=== PATIENT | male | born 2000 | race Two or more races ===

== ENCOUNTER 2023-07-20 01:58 | Emergency (ER) | payer MEDICAID, OTHER ==
[~2023-07-20] VITALS: Ht 175.3 cm; Wt 103.4 kg
[2023-07-20] MEDS ORDERED: KETOROLAC TROMETH 30 MG/ML 1ML VIAL IM ONE (04:15)
[2023-07-20 05:58] VITALS: BP 132/77; PULSE 67; RESP 18; TEMP 98.3; O2SAT 98
[2023-07-20] MEDS ORDERED: LIDO5PAD8 TOP (06:05)
[2023-07-20] MEDS ORDERED: CYCL-839 PO (06:05)
[2023-07-20] MEDS ORDERED: IBUP1TAB5 PO (06:05)
== END 2023-07-20 06:19 | disposition home or self-care (01) ==
LOC: ER 02:01
DX: S29.012A Strain of muscle and tendon of back wall of thorax, initial encounter (principal); X50.0XXA Overexertion from strenuous movement or load, initial encounter; Y93.89 Activity, other specified; Y92.89 Other specified places as the place of occurrence of the external cause; Y99.8 Other external cause status
CPT/HCPCS: 72070; 96372; 99283; J1885

== ENCOUNTER 2024-09-12 11:28 | Emergency (ER) | payer BC ==
[~2024-09-12] VITALS: Ht 172.7 cm; Wt 100.0 kg
[~2024-09-12 11:28] MED LIST: CYCL-839 PO; IBUP-1456 PO; IBUP1TAB5 PO; LIDO5PAD12 TOP
--- NOTE | 2024-09-12 11:48 | ED.PDOC ---
GI ASSESSMENT HPI Comments A 24 YEAR OLD MALE PRESENTS TO THE ED WITH COMPLAINT OF NAUSEA AND VOMITING STATUS POST WEGOVY INJECTION. PATIENT STATES HE USED AND WEGOVY INJECTION YESTERDAY NIGHT AND BEGAN TO EXPERIENCE NAUSEA AND VOMITING SHORTLY AFTER. PATIENT NOTES THAT HE HAS MILD ABDOMINAL CRAMPING ONLY WHEN VOMITING. PATIENT ALSO NOTES THAT HE DRANK ALCOHOL YESTERDAY NIGHT. PATIENT DENIES FEVER, CHILLS, SHORTNESS OF BREATH, CHEST PAIN, ABDOMINAL PAIN, HEADACHE, OR OTHER COMPLAINTS. NO OTHER SYMPTOMS OR MODIFYING FACTORS AT THIS TIME. PATIENT IS ALERT, ORIENTED X 4, AND HAS STEADY GAIT. Chief Complaint: Nausea/Vomiting Time Seen by MD: 11:40 Reviewed Notes: Nurses Notes, Medications, Allergies Allergies: Coded Allergies: NO KNOWN ALLERGIES (Unverified , 07/04/24) Home Meds Active Scripts Metoclopramide Hcl (Reglan) 10 Mg Tab, 10 MG PO BID, #30 TAB Prov:MEHDI LEON 09/12/24 Cyclobenzaprine Hcl (Cyclobenzaprine Hcl) 10 Mg Tab, 10 MG PO BID, #20 TAB Prov:MEHDI LEON 07/04/24 Ibuprofen (Ibuprofen) 800 Mg Tab, 1 TAB PO TID, #30 TAB Prov:MEHDI LEON 07/04/24 Lidocaine (Lidocaine Patch 5%) 5 % Pad, 1 APPLIC TOP DAILY PRN, #30 PATCH 0 Refills Prov:JERRY FLETCHER [facility] 07/20/23 Ibuprofen Micronized (Ibuprofen) 600 Mg Tab, 600 MG PO Q8HPRN PRN, #30 TAB 0 Refills Prov:JERRY FLETCHER [facility] 07/20/23 Cyclobenzaprine Hcl (Cyclobenzaprine Hcl) 10 Mg Tab, 10 MG PO TID, #12 TAB 0 Refills Prov:JERRY FLETCHER [facility] 07/20/23 Information Source: Patient Timing: Days Duration: Since onset, Days Prehospital treatment: None Quality: Cramping Vomitus: Food Particles Stool: Normal Severity: Moderate Recent: None Recent Hx of: None Pain Location: None Modifying Factors: Nothing Associated sign and symptoms: Nausea, Vomiting Past Medical History PAST MEDICAL HISTORY: Denies Surgical History: Denies all surgeries Family History Family History: Reviewed,noncontributory to illness Social History Smoker: Non-Smoker Alcohol: Heavy Drugs: Denies Drug Use Lives In: Home Constitutional: denies: chills, diaphoresis, fatigue, fever, malaise, sweats, weakness, others EENTM: denies: blurred vision, double vision, ear bleeding, ear discharge, ear drainage, ear pain, ear ringing, eye pain, eye redness, hearing loss, mouth pain, mouth swelling, nasal discharge, nose bleeding, nose congestion, nose pain, photophobia, tearing, throat pain, throat swelling, voice changes, others Respiratory: denies: cough, hemoptysis, orthopnea, SOB at rest, shortness of breath, SOB with excertion, stridor, wheezing, others Cardiovascular: denies: chest pain, dizzy spells, diaphoresis, Dyspnea on exertion, edema, irregular heart beat, left arm pain, lightheadedness, palpitations, PND, syncope, others Gastrointestinal: reports: nausea, vomiting; denies: abdomen distended, abdominal pain, blood streaked bowels, constipated, diarrhea, dysphagia, difficulty swallowing, hematemesis, melena, poor appetite, poor fluid intake, rectal bleeding, rectal pain, others Genitourinary: denies: burning, dysuria, flank pain, frequency, hematuria, incontinence, penile discharge, penile sore, pain, testicle pain, testicle swelling, urgency, others Neurological: denies: dizziness, fainting, headache, left sided numbness, left sided weakness, numbness, paresthesia, pre-existing deficit, right sided numbnes s, right sided weakness, seizure, speech problems, tingling, tremors, weakness, others Musculoskeletal: denies: back pain, gout, joint pain, joint swelling, muscle pain, muscle stiffness, neck pain, others Integumetry: denies: bruises, change in color, change in hair/nails, dryness, laceration, lesions, lumps, rash, wounds, others Allergic/Immunocompromised: denies: Difficulty Healing, Frequent Infections, Hives, Itching, others Hematologic/Lymphatic: denies: anemia, blood clots, easy bleeding, easy bruising, swollen glands, others Endocrine: denies: excessive hunger, excessive sweating, excessive thirst, excessive urination, flushing, intolerance to cold, intolerance to heat, unexplained weight gain, unexplained weight loss, others Psychiatric: denies: anxiety, bipolar disorder, depression, hopeless, panic disorder, schizophrenia, sleepless, suicidal, others All Other Systems: Reviewed and Negative Physical Exam General Appearance: No Apparent Distress, Obese HEENT: Normal ENT Inspection, PERRL/EOMI, Pharynx Normal, TMs Normal Neck: Full Range of Motion, Non-Tender, Normal, Normal Inspection Respiratory: Chest Non-Tender, Lungs Clear, No Accessory Muscle Use, No Respiratory Distress, Normal Breath Sounds Cardiovascular: No Edema, No JVD, No Murmur, No Gallop, Normal Peripheral Pulses, Regular Rate/Rhythm Breast Exam: Deferred Gastrointestinal: Epigastric, No Organomegaly, No Pulsatile Mass, Normal Bowel Sounds, Soft, Tenderness (MILD TENDERNESS EPIGASTRIC, NO GUARDING AND REBOUND TENDERNESS. ) Genitalia: Deferred Pelvic: Deferred Rectal: Deferred Extremities: No calf tenderness, Normal capillary refill, Normal inspection, Normal range of motion, Non-tender, No pedal edema Musculoskeletal : Apperance: Normal Neurologic: Alert, lehr tender II-XII nml as Tested, No Motor Deficits, Normal Affect, Normal Mood, No Sensory Deficits Cerebellar Function: Normal Reflexes: Normal Skin: Dry, Normal Color, Warm Peripheral Pulses: 2+ carotid (R), 2+ carotid (L) Lymphatic: No Adenopathy Was a procedure done? Was a procedure done?: No GI differential Dx Differential Diagnosis: Gastritis/PUD, Gastroenteritis, Inflammatory BD, Pancreatitis, Dehydration, Food Poisoning, Viral X-Ray, Labs, Meds, VS Vital Signs Date Time Temp Pulse Resp B/P (MAP) Pulse Ox O2 Delivery O2 Flow Rate FiO2 09/12/24 13:57 91 16 09/12/24 13:57 96.7 91 16 136/76 (96) 96 96.7 09/12/24 11:43 96.7 91 16 136/76 (96) 96 Lab Test 09/12/24 13:44 09/12/24 11:48 Range/Units Urine Color Yellow Yellow Urine Clarity Turbid H Clear Urine pH 8.0 5.0-9.0 Urine Specific [place] 1.027 1.001-1.035 Urine Protein 3+ H Negative Urine Ketones 1+ H Negative Urine Blood Negative Negative /uL Urine Nitrite Negative Negative Urine Bilirubin Negative Negative Urine Urobilinogen 4 H Negative mg/dL Urine Leukocyte Esterase Negative Negative /uL Urine RBC 8 0 - 3 /hpf Urine WBC 1 0 - 3 /hpf Urine Squamous Epithelial Cells Few <5 /hpf Urine Bacteria None seen None Seen /hpf Urine Mucus Few None Seen Urine Glucose Normal Normal mg/dL White Blood Count 7.6 4.4-10.8 10^3/uL Red Blood Count 5.32 4.5-5.90 10^6/uL Hemoglobin 16.7 13.5-17.5 g/dL Hematocrit 48.2 41.0-53.0 % Mean Corpuscular Volume 90.5 80.0-100.0 fL Mean Corpuscular Hemoglobin 31.5 28.0-32.0 pg Mean Corpuscular Hemoglobin Concent 34.8 32.0-36.0 g/dL Red Cell Distribution Width 12.9 11.8-14.3 % Platelet Count 223 140-450 10^3/uL Mean Platelet Volume 10.2 6.9-10.8 fL Neutrophils (%) (Auto) 67.3 37.0-80.0 % Lymphocytes (%) (Auto) 25.3 10.0-50.0 % Monocytes (%) (Auto) 6.6 0.0-12.0 % Eosinophils (%) (Auto) 0.4 0.0-7.0 % Basophils (%) (Auto) 0.4 0.0-2.0 % Neutrophils # (Auto) 5.1 1.6-8.6 10 ^3/uL Lymphocytes # (Auto) 1.9 0.4-5.4 10 ^3/uL Monocytes # (Auto) 0.5 0-1.3 10 ^3/uL Eosinophils # (Auto) 0 0-0.8 10 ^3/uL Basophils # (Auto) 0 0-0.2 10 ^3/uL Nucleated Red Blood Cells 0.1 % Sodium Level 141 136-145 mmol/L Potassium Level 3.7 3.5-5.1 mmol/L Chloride Level 104 98-107 mmol/L Carbon Dioxide Level 26 20-31 mmol/L Anion Gap 11 5-15 Blood Urea Nitrogen 7 L 9-23 mg/dL Creatinine 0.93 0.700-1.30 mg/dL Glomerular Filtration Rate Calc 118 >90 mL/min BUN/Creatinine Ratio 7.5 L 10.0-20.0 Serum Glucose 83 74-106 mg/dL Calcium Level 10.4 8.7-10.4 mg/dL Total Bilirubin 2.3 H 0.2-1.0 mg/dL Aspartate Amino Transferase (AST) 85 H 13-40 U/L Alanine Aminotransferase (ALT) 182 H 7-40 U/L Alkaline Phosphatase 87 46-116 U/L Total Protein 7.9 5.7-8.2 g/dL Albumin 5.0 H 3.2-4.8 g/dL Lipase 33 12-53 U/L Plasma/Serum Blood Alcohol < 3.0 <10 mg/dL Current Medications Medications (Trade) Dose Ordered Sig/Noemy Route Start Time Stop Time Status Last Admin Ondansetron HCl (Zofran Po) 8 mg ONCE ONCE PO 09/12/24 11:45 09/12/24 11:46 DC 09/12/24 12:11 ULTRASOUND ABDOMEN LIMITED INDICATION: EPIGASTRIC PAIN TECHNIQUE: Multiple real-time sonographic images of the abdomen were obtained. COMPARISON: None FINDINGS: The visualized liver parenchyma appears echogenic consistent with steatosis. . The liver measures 17.6 cm. No discrete hepatic lesion or intrahepatic biliary ductal dilatation is identified. There is no evidence of gallstones, gallbladder wall thickening or pericholecystic fluid. The common biliary duct is not dilated. The right kidney measures 11.3 cm length. No sonographic evidence of nephrolithiasis or hydronephrosis. Pancreas is obscured by bowel gas. IMPRESSION: 1. Hepatic steatosis. HS:Y ATED BY: STEPHEN FREEMAN MD DICTATED DATE/TIME: 09/12/24 134 SIGNED BY: STEPHEN FREEMAN MD SIGNED DATE/TIME: 09/12/24 134 CC: X-Ray, Labs, Meds, VS Comment EXTERNAL NOTES: NONE LABS ORDERED: CBC, CMP, LIPASE, UA, UDS, BLOOD ALCOHOL REVIEWED AND INTERPRETED RESULTS: AST 85, ALT 182 IMAGING ORDERED: [employer] ABDOMEN INDEPENDENT HISTORIANS: NONE TREATMENTS ORDERED: ZOFRAN 8 MG P.O. PATIENT'S CASE AND RESULTS HAVE BEEN DISCUSSED WITH THE ED ATTENDING PHYSICIAN AND THEY AGREE WITH MY PLAN OF CARE AND HAVE SAID THE PATIENT IS SAFE TO DISCHARGE AT THIS TIME. I HAVE DISCUSSED IMAGING AND LAB RESULTS WITH PATIENT AND HAVE INSTRUCTED THEM TO FOLLOW UP WITH THEIR PCP IN 1-2 DAYS. THE PATIENT FULLY UNDERSTANDS THEIR RESULTS AND ARE AWARE THEY NEED TO FOLLOW UP WITH THEIR PCP FOR FURTHER EVALUATION IF THEIR SYMPTOMS PERSIST. Images Reviewed?: Images reviewed and evaluated by me Time of 1ST Reevaluation: 14:55 Reevaluation 1ST: Improved Patient Education/Counseling: Diagnosis, Treatment, Need For Follow Up Family Education/Counseling: Diagnosis, Treatment, Need For Follow Up Medical Screening: No EMC Exist At This Time Departure 1 Departure Time of Disposition: 15:00 Impression: Primary Impression: Side effect of medication Additional Impressions: Elevated liver enzymes Hepatic steatosis History of ETOH abuse Disposition: HOME / SELF CARE / HOMELESS Condition: Stable Additional Instructions: FOLLOW-UP WITH PCP IN 1 TO 2 DAYS. TAKE MEDICATIONS PRESCRIBED. RETURN TO ED FOR ANY NEW OR WORSENING SYMPTOMS. e-Prescriptions Metoclopramide Hcl (Reglan) 10 Mg Tab 10 MG PO BID, #30 TAB Prov: MEHDI LEON 09/12/24 Discharged With: Self Critical Care Note Critical Care Time?: No Stability Stability form required: No I personally scribed for MEHDI LEON ([email or web address]) on 09/12/24 at 11:48. Electronically submitted by Davion Puga ([email or web address]). I personally scribed for MEHDI LEON ([email or web address]) on 09/12/24 at 13:55. Electronically submitted by Davion Puga ([email or web address]). MEHDI LEON Sep 12, 2024 11:48
[2024-09-12] MEDS: ONDANSETRON ODT 4 MG TAB PO ONE (12:11)
[2024-09-12 12:28] LABS: Basophils # (auto) 0 10 ^3/uL (0-0.2); Basophils % (auto) 0.4 % (0.0-2.0); Eosinophils # (auto) 0 10 ^3/uL (0-0.8); Eosinophils % (auto) 0.4 % (0.0-7.0); Hematocrit 48.2 % (41.0-53.0); Hemoglobin 16.7 g/dL (13.5-17.5); Lymphocytes # (auto) 1.9 10 ^3/uL (0.4-5.4); Lymphocytes % (auto) 25.3 % (10.0-50.0); Mean Corpuscular Hemoglobin 31.5 pg (28.0-32.0); Mean Corpuscular Hgb Conc. 34.8 g/dL (32.0-36.0); Mean Corpuscular Volume 90.5 fL (80.0-100.0); Monocytes # (auto) 0.5 10 ^3/uL (0-1.3); Monocytes % (auto) 6.6 % (0.0-12.0); Neutrophils # (auto) 5.1 10 ^3/uL (1.6-8.6); Neutrophils % (auto) 67.3 % (37.0-80.0); Nucleated Red Blood Cells % 0.1 %; Platelet Count (auto) 223 10^3/uL (140-450); Red Blood Cells 5.32 10^6/uL (4.5-5.90); Red Cell Distribution Width 12.9 % (11.8-14.3); White Blood Cell 7.6 10^3/uL (4.4-10.8)
[2024-09-12 12:45] LABS: Alkaline Phosphatase 87 U/L (46-116); Anion Gap 11 (5-15); BUN/Creatinine Ratio 7.5 (10.0-20.0); Carbon Dioxide 26 mmol/L (20-31); Chloride 104 mmol/L (98-107); Glucose 83 mg/dL (74-106); Potassium 3.7 mmol/L (3.5-5.1); Sodium 141 mmol/L (136-145)
[2024-09-12 12:46] LABS: Total Protein 7.9 g/dL (5.7-8.2)
[2024-09-12 12:52] LABS: Alanine Aminotransferase 182 U/L (7-40); Aspartate Aminotransferase 85 U/L (13-40); Bilirubin, Total 2.3 mg/dL (0.2-1.0); Blood Alcohol < 3.0 mg/dL (<10); Blood Urea Nitrogen 7 mg/dL (9-23); Calcium 10.4 mg/dL (8.7-10.4)
[2024-09-12 13:45] LABS: Urine Bacteria None Seen /hpf (None Seen)
--- NOTE | 2024-09-12 13:50 | DVH ---
ULTRASOUND ABDOMEN LIMITED INDICATION: EPIGASTRIC PAIN TECHNIQUE: Multiple real-time sonographic images of the abdomen were obtained. COMPARISON: None FINDINGS: The visualized liver parenchyma appears echogenic consistent with steatosis. . The liver measures 17.6 cm. No discrete hepatic lesion or intrahepatic biliary ductal dilatation is identified. There is no evidence of gallstones, gallbladder wall thickening or pericholecystic fluid. The common biliary duct is not dilated. The right kidney measures 11.3 cm length. No sonographic evidence of nephrolithiasis or hydronephro sis. Pancreas is obscured by bowel gas. IMPRESSION: 1. Hepatic steatosis. HS:Y
[2024-09-12 13:55] LABS: Urine Blood Negative /uL (Negative); Urine Clarity Turbid (Clear); Urine Color Yellow (Yellow); Urine Mucus FEW (None Seen); Urine Protein, UAD 3+ (Negative); Urine Specific Gravity 1.027 (1.001-1.035); Urine Urobilinogen 4 mg/dL (Negative); Urine WBC 1 /hpf (0 - 3)
[2024-09-12 13:57] VITALS: BP 136/76; PULSE 91; RESP 16; TEMP 96.7; O2SAT 96
[2024-09-12 14:19] LABS: Lipase 33 U/L (12-53)
[2024-09-12] MEDS ORDERED: METO-281 PO (14:53)
== END 2024-09-12 14:55 | disposition home or self-care (01) ==
LOC: ER 11:28
DX: K76.0 Fatty (change of) liver, not elsewhere classified (principal); F10.10 Alcohol abuse, uncomplicated; Z79.899 Other long term (current) drug therapy
CPT/HCPCS: 36415; 76705; 80053; 80320; 81001; 83690; 85025; 99284; Q0162

== ENCOUNTER 2024-12-03 03:04 | Emergency (ER) | payer BC ==
[~2024-12-03] VITALS: Ht 175.3 cm; Wt 96.3 kg
[~2024-12-03 03:04] MED LIST changes: +METO-281 PO
[2024-12-03 03:32] LABS: Urine Bacteria None Seen /hpf (None Seen)
--- NOTE | 2024-12-03 03:32 | ED.PDOC ---
GI ASSESSMENT HPI Comments 24-year-old male with no significant past medical history brought in by family complaining of epigastric pain, nausea and vomiting after eating shrimp. He states he vomited multiple times, however has not vomited since around 2:00 a.m.. He denies any fever, diarrhea or dysuria. Chief Complaint: Abdominal Pain Time Seen by MD: 03:15 Primary Care Provider: UNKNOWN Reviewed Notes: Nurses Notes, Medications, Allergies Allergies: Coded Allergies: NO KNOWN ALLERGIES (Unverified , 07/04/24) Home Meds Active Scripts Metoclopramide Hcl (Reglan) 10 Mg Tab, 10 MG PO BID, #30 TAB Prov:MEHDI LEON 09/12/24 Cyclobenzaprine Hcl (Cyclobenzaprine Hcl) 10 Mg Tab, 10 MG PO BID, #20 TAB Prov:MEHDI LEON 07/04/24 Ibuprofen (Ibuprofen) 800 Mg Tab, 1 TAB PO TID, #30 TAB Prov:MEHDI LEON 07/04/24 Lidocaine (Lidocaine Patch 5%) 5 % Pad, 1 APPLIC TOP DAILY PRN, #30 PATCH 0 Refills Prov:JERRY FLETCHER [facility] 07/20/23 Ibuprofen Micronized (Ibuprofen) 600 Mg Tab, 600 MG PO Q8HPRN PRN, #30 TAB 0 Refills Prov:JERRY FLETCHER [facility] 07/20/23 Cyclobenzaprine Hcl (Cyclobenzaprine Hcl) 10 Mg Tab, 10 MG PO TID, #12 TAB 0 Refills Prov:JERRY FLETCHER [facility] 07/20/23 Information Source: Patient Mode of Arrival: Ambulatory Timing: Hours Duration: Since onset Prehospital treatment: None Past Medical History PAST MEDICAL HISTORY: Denies Surgical History (Other): Eye surgery Family History Family History: Reviewed,noncontributory to illness Social History Smoker: Non-Smoker Alcohol: Denies ETOH Use Drugs: Denies Drug Use Lives In: Home All Other Systems: Reviewed and Negative (Negative unless otherwise stated in HPI) Physical Exam General Appearance: No Apparent Distress HEENT: Other (Moist mucous membranes) Neck: Full Range of Motion, Normal Inspection Respiratory: Lungs Clear, No Accessory Muscle Use, No Respiratory Distress, Normal Breath Sounds Cardiovascular: No Edema, No JVD, Regular Rate/Rhythm Breast Exam: Deferred Gastrointestinal: Non Tender, Soft Genitalia: Deferred Pelvic: Deferred Rectal: Deferred Extremities: Normal inspection, Normal range of motion, Non-tender, No pedal edema Neurologic: Alert (Oriented x4), Normal Affect, Normal Mood, Other (Ambulatory without difficulty. No gross focal deficit.) Cerebellar Function: NOT DONE Reflexes: NOT DONE Skin: Dry, Normal Color, Warm Lymphatic: NOT DONE Was a procedure done? Was a procedure done?: No GI differential Dx Differential Diagnosis: Gastritis/PUD, Gastroenteritis, UTI, Dehydration, Electrolyte Imbalance, Food Poisoning, Bacterial, Viral, Hypovolemia X-Ray, Labs, Meds, VS Vital Signs Date Time Temp Pulse Resp B/P (MAP) Pulse Ox O2 Delivery O2 Flow Rate FiO2 12/03/24 04:44 98.7 77 19 121/77 (92) 100 98.7 12/03/24 03:09 98.7 66 18 117/72 (87) 98 Lab Test 12/03/24 04:34 12/03/24 03:39 12/03/24 03:00 Range/Units Troponin I High Sensitivity Pending < 3 L </=54 ng/L White Blood Count 7.8 4.4-10.8 10^3/uL Red Blood Count 5.39 4.5-5.90 10^6/uL Hemoglobin 16.6 13.5-17.5 g/dL Hematocrit 48.8 41.0-53.0 % Mean Corpuscular Volume 90.5 80.0-100.0 fL Mean Corpuscular Hemoglobin 30.7 28.0-32.0 pg Mean Corpuscular Hemoglobin Concent 33.9 32.0-36.0 g/dL Red Cell Distribution Width 13.0 11.8-14.3 % Platelet Count 231 140-450 10^3/uL Mean Platelet Volume 9.8 6.9-10.8 fL Neutrophils (%) (Auto) 46.2 37.0-80.0 % Lymphocytes (%) (Auto) 44.7 10.0-50.0 % Monocytes (%) (Auto) 6.8 0.0-12.0 % Eosinophils (%) (Auto) 1.3 0.0-7.0 % Basophils (%) (Auto) 1.0 0.0-2.0 % Neutrophils # (Auto) 3.6 1.6-8.6 10 ^3/uL Lymphocytes # (Auto) 3.5 0.4-5.4 10 ^3/uL Monocytes # (Auto) 0.5 0-1.3 10 ^3/uL Eosinophils # (Auto) 0.1 0-0.8 10 ^3/uL Basophils # (Auto) 0.1 0-0.2 10 ^3/uL Nucleated Red Blood Cells 0.2 % Sodium Level 139 136-145 mmol/L Potassium Level 3.6 3.5-5.1 mmol/L Chloride Level 106 98-107 mmol/L Carbon Dioxide Level 23 20-31 mmol/L Anion Gap 10 5-15 Blood Urea Nitrogen 11 9-23 mg/dL Creatinine 0.99 0.700-1.30 mg/dL Glomerular Filtration Rate Calc 109 >90 mL/min BUN/Creatinine Ratio 11.1 10.0-20.0 Serum Glucose 105 74-106 mg/dL Calcium Level 10.3 8.7-10.4 mg/dL Total Bilirubin 3.0 H 0.2-1.0 mg/dL Aspartate Amino Transferase (AST) 33 13-40 U/L Alanine Aminotransferase (ALT) 43 H 7-40 U/L Alkaline Phosphatase 90 46-116 U/L Total Protein 7.6 5.7-8.2 g/dL Albumin 5.2 H 3.2-4.8 g/dL Lipase 40 12-53 U/L Urine Color Yellow Yellow Urine Clarity Clear Clear Urine pH 5.5 5.0-9.0 Urine Specific [place] 1.032 1.001-1.035 Urine Protein Trace H Negative Urine Ketones Negative Negative Urine Blood Negative Negative /uL Urine Nitrite Negative Negative Urine Bilirubin Negative Negative Urine Urobilinogen 2 H Negative mg/dL Urine Leukocyte Esterase Negative Negative /uL Urine RBC 1 0 - 3 /hpf Urine Microscopic WBC 3 0-3 /HPF Urine Squamous Epithelial Cells Few <5 /hpf Urine Bacteria None seen None Seen /hpf Urine Mucus Few None Seen Urine Glucose Normal Normal mg/dL X-Ray, Labs, Meds, VS Comment 24-year-old male with no significant past medical history complaining of upper abdominal discomfort, nausea and vomiting after eating shrimp Vitals unremarkable Exam unremarkable Rhythm strip independently interpreted by me: Sinus rhythm, rate 66, no ectopy. CBC, metabolic panel, lipase, troponin unremarkable Patient treated with the following in the ED: 1 L 0.9 normal saline IV bolus, morphine 4 mg IV, Zofran 4 mg IV, Protonix 40 mg IV On re-evaluation, patient states symptoms have improved. Vitals were stable, he tolerated p.o. fluids. Hospitalization was considered, however patient had rapid improvement of symptoms with treatment in the ED, and I no longer feel hospitalization is necessary. Patient now appears stable for discharge with close outpatient follow-up with his primary physician. Rx Bentyl, Zofran, Pepcid Time of 1ST Reevaluation: 03:45 Reevaluation 1ST: Unchanged Patient Education/Counseling: Diagnosis, Treatment Family Education/Counseling: No Family Present Departure 1 Departure Time of Disposition: 05:20 Impression: Primary Impression: Abdominal pain Qualified Codes: R10.13 - Epigastric pain Additional Impression: Nausea and vomiting Qualified Codes: R11.2 - Nausea with vomiting, unspecified Disposition: HOME / SELF CARE / HOMELESS Condition: Stable Additional Instructions: Your blood tests were unremarkable. Follow-up with your primary doctor in 1-2 days. I have prescribed medication for your symptoms. Return to ER for persistent or worsening symptoms. e-Prescriptions Famotidine (Pepcid AC) 20 Mg Tab 20 MG PO BID PRN, #60 TAB Prn upset stomach Prov: JORY APARICIO MD 12/03/24 Ondansetron Odt 4MG Tab (ZOFRAN PO) 4 Mg Tb 4 MG PO TID PRN, #30 TAB Prn nausea/vomiting ODT TAB-DISSOLVE IN MOUTH, THEN SWALLOW Prov: JORY APARICIO MD 12/03/24 Dicyclomine Hcl (BENTYL CAPSULE) 10 Mg Cp 2 CAP PO Q6HP PRN, #30 CAP 11 Refills Prn abdominal pain Prov: JORY APARICIO MD 12/03/24 Discharged With: Relative Critical Care Note Critical Care Time?: No Stability Stability form required: No Heart Score Heart Score: Heart Score Response (Comments) Value History N/A 0 EKG N/A 0 Age N/A 0 Risk Factors N/A 0 Troponin N/A 0 Total 0 I personally scribed for JORY APARICIO MD ([email or web address]) on 12/03/24 at 03:32. Electronically submitted by Daron Gonzales ([email or web address]). JORY APARICIO MD Dec 03, 2024 03:32
[2024-12-03] MEDS: ONDANSETRON HCL 4 MG/2 ML VIAL IV ONE (03:45)
[2024-12-03] MEDS: MORPHINE SULFATE 4 MG/ML SYR/VIAL IV ONE (03:45)
[2024-12-03 04:03] LABS: Basophils # (auto) 0.1 10 ^3/uL (0-0.2); Eosinophils # (auto) 0.1 10 ^3/uL (0-0.8); Eosinophils % (auto) 1.3 % (0.0-7.0); Hematocrit 48.8 % (41.0-53.0); Hemoglobin 16.6 g/dL (13.5-17.5); Lymphocytes # (auto) 3.5 10 ^3/uL (0.4-5.4); Lymphocytes % (auto) 44.7 % (10.0-50.0); Mean Corpuscular Hemoglobin 30.7 pg (28.0-32.0); Mean Corpuscular Hgb Conc. 33.9 g/dL (32.0-36.0); Mean Corpuscular Volume 90.5 fL (80.0-100.0); Monocytes # (auto) 0.5 10 ^3/uL (0-1.3); Monocytes % (auto) 6.8 % (0.0-12.0); Neutrophils # (auto) 3.6 10 ^3/uL (1.6-8.6); Neutrophils % (auto) 46.2 % (37.0-80.0); Nucleated Red Blood Cells % 0.2 %; Platelet Count (auto) 231 10^3/uL (140-450); Red Blood Cells 5.39 10^6/uL (4.5-5.90); White Blood Cell 7.8 10^3/uL (4.4-10.8)
[2024-12-03 04:19] LABS: Alkaline Phosphatase 90 U/L (46-116); Anion Gap 10 (5-15); Aspartate Aminotransferase 33 U/L (13-40); BUN/Creatinine Ratio 11.1 (10.0-20.0); Blood Urea Nitrogen 11 mg/dL (9-23); Calcium 10.3 mg/dL (8.7-10.4); Carbon Dioxide 23 mmol/L (20-31); Chloride 106 mmol/L (98-107); Glucose 105 mg/dL (74-106); Lipase 40 U/L (12-53); Potassium 3.6 mmol/L (3.5-5.1); Sodium 139 mmol/L (136-145); Total Protein 7.6 g/dL (5.7-8.2)
[2024-12-03 04:38] LABS: Alanine Aminotransferase 43 U/L (7-40); Albumin 5.2 g/dL (3.2-4.8)
[2024-12-03 04:44] LABS: Urine Blood Negative /uL (Negative); Urine Clarity Clear (Clear); Urine Color Yellow (Yellow); Urine Mucus FEW (None Seen); Urine Protein, UAD TRACE (Negative); Urine Specific Gravity 1.032 (1.001-1.035); Urine Squamous Epithelial Cell FEW /hpf (<5); Urine Urobilinogen 2 mg/dL (Negative); Urine WBC 3 /HPF (0-3); Urine pH 5.5 (5.0-9.0)
[2024-12-03] MEDS ORDERED: ZOFR4T PO (05:23)
[2024-12-03] MEDS ORDERED: DICY10CA PO (05:23)
[2024-12-03] MEDS ORDERED: FAMO-161 PO (05:23)
[2024-12-03] MEDS: PANTOPRAZOLE 40 MG/10 ML VIAL INJ IV ONE (05:37)
[2024-12-03] MEDS: SODIUM CHLORIDE 0.9% 1,000 ML IV ONE (05:37)
[2024-12-03 06:35] VITALS: BP 119/70; TEMP 98
[2024-12-03 06:38] VITALS: PULSE 87; RESP 16; O2SAT 99
== END 2024-12-03 07:02 | disposition home or self-care (01) ==
LOC: ER 03:04
DX: R10.13 Epigastric pain (principal); R11.2 Nausea with vomiting, unspecified
CPT/HCPCS: 36415; 80053; 81001; 83690; 84484; 85025; 96361; 96374; 99283; J2470; J7030